=== PATIENT | female | born 1995 | race Caucasian/White ===

== ENCOUNTER 2019-07-22 10:33 | Outpatient (CLI) | payer OTHER ==
[2019-07-22] MEDS ORDERED: Magnevist 469MG/ML 20 ML VIAL ONE (10:55)
--- NOTE | 2019-07-22 15:41 | MRI ---
EXAM: MRI of the brain/pituitary without and with contrast HISTORY: Hyperprolactinemia COMPARISON: None TECHNIQUE: Multiplanar multisequence MR images were obtained of the brain without and with IV contras t. FINDINGS: The brain demonstrates normal signal intensity on all obtained sequences. No restricted diffusion. No abnormal enhancement. No hydronephrosis. No extra-axial fluid collection or intracranial hemorrhage. Thin cuts through the pituitary shows no evidence of pituitary mass. Pituitary stalk is midline. The expected flow voids are present. Corpus callosum, pituitary, and craniocervical junction are within normal limits. The calvarium and overlying soft tissues are unremarkable. The paranasal sinuses and mastoid air cells are well aerated. IMPRESSION: Unremarkable exam.
== END 2019-07-22 10:34 | disposition home or self-care (01) ==
LOC: BICMRI 10:33
PROVIDERS: ATTEND Student in an Organized Health Care Education/Training Program
DX: E22.1 Hyperprolactinemia (principal)
CPT/HCPCS: 70553; A9579